=== PATIENT | female | born 1980 | race Caucasian/White ===

== ENCOUNTER 2016-10-18 15:32 | Emergency (ER) | payer SELFPAY ==
--- NOTE | 2016-10-30 14:39 | ER ---
ADMIT: 10/18/2016 RM/LOC: ER [facility] MR#: [id number] [address] [place] [address] Emergency Room Report SEX: F AGE: 36 : 1980 DATE: 10/18/2016 ADDENDUM: CHIEF COMPLAINT: Cough. HISTORY OF PRESENT ILLNESS: This is a 36-year-old female, who just developed a cough yesterday. She said when she coughs, it hurts her mid back. She also has hurt all over and has a headache. She took a Tylenol yesterday when she had a low-grade fever of 100, but she said she just feels very miserable. COURSE IN THE EMERGENCY ROOM: I did an influenza test, it is negative. I told her this is probably some other virus, that she is to push fluids, use Motrin and Tylenol for pain and fever. Follow up with her primary care physician if she worsens. CLINICAL IMPRESSION: Acute bronchitis. CECE Grissom / Rafael Mandel MD / dina JOB #: [id number] CC: Rafael Mandel MD, Attending Physician
[2017-02-26] MEDS ORDERED: TYLENOL DPS325 MG PO (14:49)
== END 2016-10-18 17:18 | disposition home or self-care (01) ==
LOC: ER 15:32
DX: J20.9 Acute bronchitis, unspecified (principal); F17.210 Nicotine dependence, cigarettes, uncomplicated